=== PATIENT | female | born 1945 | race Caucasian/White ===

== ENCOUNTER 2020-07-11 16:30 | Emergency (ER) | payer MEDICARE, BC ==
[~2020-07-11] VITALS: Ht 167.6 cm; Wt 80.9 kg
[~2020-07-11 16:30] MED LIST: HYDR1TAB PO; NAPR-56 PO; ONDA4TAB6 PO
[2020-07-11 20:04] VITALS: BP 135/64
== END 2020-07-11 20:06 | disposition home or self-care (01) ==
LOC: ER 16:30
DX: S93.402A Sprain of unspecified ligament of left ankle, initial encounter (principal); R60.9 Edema, unspecified; Z79.899 Other long term (current) drug therapy; X50.1XXA Overexertion from prolonged static or awkward postures, initial encounter; Y93.89 Activity, other specified; Y92.89 Other specified places as the place of occurrence of the external cause; Y99.8 Other external cause status
CPT/HCPCS: 93970; 99284

== ENCOUNTER 2024-05-21 12:12 | Outpatient (CLI) | payer MEDICARE, BC ==
[2024-05-21] MEDS ORDERED: barium sulfate 340gm for oral suspension 1 BOTTLE SUSP.RECON PO ONE (15:00)
== END 2024-05-21 23:59 | disposition home or self-care (01) ==
LOC: RAD 12:12
PROVIDERS: ATTEND Surgery
DX: K44.9 Diaphragmatic hernia without obstruction or gangrene (principal); K21.9 Gastro-esophageal reflux disease without esophagitis
CPT/HCPCS: 74220

== ENCOUNTER 2024-08-10 06:01 | Observation (INO) | payer MEDICARE, BC ==
--- NOTE | 2024-08-03 14:11 | ELECTROCARDIOGRAPH REPORT ---
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 LONNIE Salinas Measurements Intervals Victor Rate: 63 P: -4 CT: 160 QRS: -43 QRSD: 97 T: 31 QT: 419 QTc: 429 Interpretive Statements Sinus rhythm Left anterior fascicular block RSR' in V1 or V2, right VCD or RVH Electronically Signed On 08-06-2024 19:12:[address] LONNIE Salinas Please click the below link to view image of tracing.
[2024-08-03 14:15] LABS: BASOPHILS # (AUTO) 0.1 X10'3 (0-0.2); BASOPHILS % (AUTO) 1.3 % (0-1); EOSINOPHILS # (AUTO) 0.2 X10'3 (0-0.9); EOSINOPHILS % (AUTO) 3.2 % (0-6); LYMPHOCYTES # (AUTO) 1.9 X10'3 (1.1-4.8); MEAN CORPUSCULAR HEMOGLOBIN 31.1 PG (27.0-31.0); MEAN CORPUSCULAR HGB CONC 32.9 g/dL (33.0-36.5); MEAN CORPUSCULAR VOLUME 94.7 FL (78-98); MEAN PLATELET VOLUME 7.4 FL (7.4-10.4); MONOCYTES # (AUTO) 0.6 X10'3 (0-0.9); MONOCYTES % (AUTO) 8.8 % (2-12); NEUTROPHILS % (AUTO) 58.7 % (42-75); PRE OP HEMATOCRIT 38.4 % (35.0-45.0); PRE OP HEMOGLOBIN 12.6 g/dL (12.0-16.0); PRE OP PLATELET COUNT 291 X10'3 (140-440); PRE OP WHITE BLOOD COUNT 6.8 10'3 (4.8-10.8); RED BLOOD COUNT 4.06 X10'6 (4.20-5.60); RED CELL DISTRIBUTION WIDTH 13.4 % (11.5-14.5)
[2024-08-03 14:38] LABS: ALBUMIN 3.8 G/DL (3.4-5.0); ALBUMIN/GLOBULIN RATIO 1.2 (1.1-1.5); ALKALINE PHOSPHATASE 46 IU/L (46-116); BLOOD UREA NITROGEN 21 MG/DL (7-18); BUN/CREATININE RATIO 17.9 (10.0-20.0); CALCIUM 9.1 MG/DL (8.5-10.1); CHLORIDE 107 MMOL/L (99-107); CREATININE 1.17 MG/DL (0.40-0.90); PRE OP ALT 27 U/L (30-65); PRE OP ANION GAP 7 (8-16); PRE OP AST 21 U/L (10-37); PRE OP BILIRUB, TOTAL 0.5 MG/DL (0.0-1.0); PRE OP GLUCOSE 85 MG/DL (70-104); PRE OP POTASSIUM 4.3 MMOL/L (3.4-5.1); PRE OP SODIUM 143 MMOL/L (135-145); TOTAL CARBON DIOXIDE 28.7 MMOL/L (24-32); TOTAL PROTEIN 7.1 G/DL (6.4-8.2); eGFR 45 ML/MIN
[2024-08-10] VITALS (40 sets, daily range): BP systolic 107–135; BP diastolic 43–62; PULSE 59–83; RESP 7–19; TEMP 97.3–97.7; O2SAT 93–100
[~2024-08-10] VITALS: Ht 167.6 cm; Wt 68.8 kg
[2024-08-10] MEDS: ceFAZolin 2gm/dext,iso 50mL 50 ML IV ONE (05:30)
[~2024-08-10 06:01] MED LIST changes: +ACET-1025 PO; -HYDR1TAB PO; -NAPR-56 PO; -ONDA4TAB6 PO
[2024-08-10] MEDS: famotidine 20mg tablet PO ONE (06:46)
[2024-08-10] MEDS: ringers solution, lacted 1,000 ML IV SCH ×3 (06:46→16:05)
[2024-08-10] MEDS ORDERED: BUPIVAcaine 2.5mg/ml inj 50ml vial (contains preservative) ONE (06:48)
[2024-08-10] MEDS ORDERED: LIDOcaine 1% 30ml preserv. free vial ONE (06:49)
[2024-08-10] MEDS ORDERED: sevoflurane 250ml liquid IH ONE (08:24)
[2024-08-10] MEDS ORDERED: hydrALAZINE 20mg/ml inj. IV PRN (08:30)
[2024-08-10] MEDS ORDERED: proCHLORperazine 10 MG/2 ml inj IV PRN (08:30)
[2024-08-10] MEDS ORDERED: morphine 4 MG/ML inj SYRINge IV PRN (08:30)
[2024-08-10] MEDS ORDERED: labetalol 20mg/4ml (5mg/ml) syringe IV PRN (08:30)
[2024-08-10] MEDS ORDERED: meperidine/PF 25mg/ml syringe IV PRN (08:30)
[2024-08-10] MEDS ORDERED: midazolam 1 mg/ML 2ml injection ONE (08:31)
[2024-08-10] MEDS: BUPIVAcaine/PF 2.5 mg/ml (0.25%) 30ml vial IJ ONE (08:45)
[2024-08-10] MEDS ORDERED: propofol inj 20 ML IV ONE (08:52)
[2024-08-10] MEDS ORDERED: LIDOcaine 2% (20mg/ml) 5ml vial ONE (08:52)
[2024-08-10] MEDS ORDERED: fentaNYL /PF 50mcg/ml 5ml ampule ONE (08:52)
[2024-08-10] MEDS ORDERED: dexamethasone sod phosphate 4mg/ml inj. ONE (08:53)
[2024-08-10] MEDS ORDERED: rocuronium 10mg/ml inj IV ONE (08:53)
[2024-08-10] MEDS ORDERED: ondansetron/PF 4mg/2ml inj ONE (08:53)
[2024-08-10] MEDS ORDERED: glycopyrrolate 0.2mg/ml inj ONE ×2 (10:15→10:22)
[2024-08-10] MEDS ORDERED: 0.9 % SODIUM CHLORIDE 10 ML VIAL ONE (10:15)
[2024-08-10] MEDS ORDERED: ePHEDrine 50MG/ML INJ. ONE (10:15)
[2024-08-10] MEDS ORDERED: neostigmine methylsulfate 1 MG/ML 10ml vial ONE (10:22)
[2024-08-10] MEDS ORDERED: sugammadex 200mg/2ml injection IV ONE (10:25)
[2024-08-10] MEDS ORDERED: morphine 4 MG/ML inj SYRINge ONE (10:29)
[2024-08-10] MEDS: HYDROmorphone/PF 0.2 MG/ML SYRINGE IV PRN ×2 (10:44→11:13)
[2024-08-10] MEDS: acetaminophen 1,000mg/100ml IV 100 ML IV PRN (10:46)
--- NOTE | 2024-08-10 11:59 | RADIOLOGY REPORT ---
EXAM: DI CHEST,SINGLE VIEW Indication: postop Technique: Single frontal view of the chest was obtained Comparison: None FINDINGS: Lines and Tubes: None Lungs: No focal consolidation. Pleura: No effusion. No pneumothorax. Cardiomediastinal contours: Unremarkable, diffuse subcutaneous emphysema in the neck. Bones: No acute osseous abnormality. IMPRESSION: diffuse subcutaneous emphysema in the neck.No acute cardiopulmonary disease.
[2024-08-10] MEDS: ondansetron/PF 4mg/2ml inj IV PRN (12:47)
[2024-08-10] MEDS: morphine 2 MG/ML inj. syringe IV PRN (12:47)
[2024-08-10] MEDS ORDERED: ondansetron/PF 4mg/2ml inj IV PRN (16:05)
[2024-08-10] MEDS ORDERED: HYDROmorphone inj. 0.5 MG/0.5 ML DISP.SYRIN IV PRN (16:05)
[2024-08-10] MEDS: oxyCODONE/APAP 5-325mg tablet PO PRN (16:22)
--- NOTE | 2024-08-10 19:13 | OPERATIVE REPORT ---
Operative Report Providers to CC CC: JAYDEN DURÁN MD ~ Date of Procedure: Aug 10, 2024 Pre-Operative Diagnosis: paraesophageal hernia Post-Operative Diagnosis Type III paraesophageal hernia Procedure Performed Robotic assisted, laparoscopic paraesophageal hernia repair with mesh Surgeon: Jayden Durán MD FACS Counseling Program Leader None Anesthesiologist: Anthony Marie Type of Anesthesia: General Findings: Type 3 paraesophageal hernia with a proximally 20% of the stomach and GE junction herniated above the hiatus Wound Class I Complications None Prosthetics\Implants used: Phasix mesh Estimated Blood Loss: Minimal Specimen Removed: Hernia sac/GE fat pad excised and discarded Description of Procedure: Patient was brought to the operating room and identified by the nursing staff and the attending physician. Patient was placed supine and general anesthesia was induced. Preoperative antibiotics were given. Plascencia catheter was placed. The abdomen was prepped and draped in the standard sterile fashion. At [place], Veress needle technique was used through a stab incision to access and insufflate the abdomen. This was accomplished without incident. An optical, 12 mm trocar was used to gain access to the abdomen in the left upper quadrant under laparoscopic visualization. Additional 8.5 mm robotic trochars were placed under laparoscopic visualization in the left lateral upper abdomen, left epigastrium and right uppe r quadrant. Patient was placed in steep, reverse Trendelenburg position. The da Krystle robotic arm was docked to the patient and instruments guided into the abdomen under laparoscopic visualization. The left lobe of the liver was lifted and the hiatus inspected. Fairly large hiatal defect was noted. GE junction and a proximally 15-20% of the stomach was above the hiatus. An 18 inch, 0, V-Loc suture was used to sling the left lobe of the liver up to the anterior abdominal wall. With the stomach retracted towards the patient's left upper quadrant, dissection was initiated along the pars flaccida and the lesser sac was entered. The lesser omentum was divided up to the right sammi. There was not a replaced left hepatic artery. Dissection was carried in to the mediastinum. The mediastinal space was entered. Dissection was then carried p osteriorly along the right sammi, taking care to leave peritoneum overlying the muscles. Once the posterior decussation was encountered, attention was then turned to the short gastric vessels. Stomach was retracted toward the patient's right and the short gastric vessels were placed on tension. The short gastric vessels were divided along the upper portion of the greater curvature, up to the phrenoesophageal ligament which was also then divided. The peritoneal reflection of the left sammi was opened and dissection carried up until the apex of the crura was reached. Dissection was carried up into the mediastinum, mobilizing the esophagus from the retrocardiac space and taking care not to injure the bilateral pleura. The entire hernia sac which was moderate in size, was mobilized out of the mediastinum and reduced into the abdomen. Excess sac was dissected at the level of the gastroesophageal fat pad and set aside. The retroesophageal space was developed. The GE junction was retracted anteriorly and the mediastinal dissection was carried out posterior to the esophagus. Dissection continued until at least 3 cm of intra-abdominal esophagus was obtained without any retraction on the stomach. With the stomach retracted anteriorly, adequate space and visualization was obtained to allow for the crural repair. Strips of bioabsorbable, Phasix mesh were used to reinforce the crural repair. A strip of mesh was placed over each crura and used for reapproximation without tension. Attention was then turned to the gastropexy. Fundus was anchored to the upper left portion of the hiatus with full-thickness crural sutures. The suture was then run along the greater curvature creating a gastropexy to the anterior abdominal wall. Care was taken to stay medial to the phrenic nerve and vascular bundle. About a fourth of the gastric fundus was anchored to the anterior abdo olive wall. Attention was then turned to the modified Hill procedure/augmentation stitch. The angle of His was then recreated with a running, 2/0, absorbable, V-Loc suture. This was run between the fundus and the lateral border of the intra-abdominal esophagus. This suture was run up to the level of the left sammi. Gastropexy was then completed by running the midportion of the gastric fundus towards the initial gastropexy suture and anchoring the 2 together. [place] and sutures were retrieved. The da Krystle robotic arm was undocked from the patient. The 12 mm port was removed and the fascial defect closed percutaneously with 0 Vicryl suture. Remaining ports were removed and the abdomen was allowed to deflate. Skin was closed at all sites with 4-0 Monocryl sutures and dressed with Dermabond. Patient was extubated and transferred to the postanesthesia care unit in stable condition. Counts repoted as correct: Yes JAYDEN DURÁN MD Aug 10, 2024 19:13
[2024-08-10] MEDS ORDERED: PER5325T PO (19:16)
[2024-08-10] MEDS: heparin, porcine 5000 units/ml vial SQ SCH (21:08)
[2024-08-11 02:00] VITALS: BP 115/52; PULSE 59; RESP 15; TEMP 97.6; O2SAT 96
[2024-08-11 06:00] VITALS: BP 115/47; PULSE 64; RESP 15; TEMP 97.5; O2SAT 93
[2024-08-11 08:00] VITALS: RESP 18; O2SAT 99
[2024-08-11 10:00] VITALS: BP 124/57; PULSE 54; RESP 17; TEMP 97.2; O2SAT 94
--- NOTE | 2024-08-11 11:33 | DISCHARGE SUMMARY ---
Discharge Summary Providers to CC CC: JAYDEN DURÁN MD ~ Discharge Summary Admission Diagnosis: paraesophageal hernia Hospital Course DATE OF ADMISSION: August 10, 2024 DATE OF DISCHARGE: August 11, 2024 Discharge Diagnosis\Comment: Paraesophageal hernia Operations\Procedures: Robotic assisted, laparoscopic paraesophageal hernia repair with mesh Consultants: Jayden Durán MD FACS Complications: None Condition on DC: Stable New Medications: Oxycodone Hcl/Acetaminophen 5/325 MG* (Percocet 5/325 MG*) 5 Mg/325 Mg Tablet 1 TAB PO Q4H PRN for moderate or severe pain 4-10 for 5 Days, #30 TAB Continued Medications: Acetaminophen (Tylenol Extra Strength) 500 Mg Tablet 2 TAB PO Q6H PRN PRN for pain or fever Discharge Summary: Patient was admitted for postoperative pain management and overnight observation following robotic assisted, laparoscopic mesh repair of a large type 3 parae sophageal hernia. On postoperative day 1., patient was tolerating a full liquid diet without dysphagia, had no dyspnea and pain was adequately controlled with oral pain medications. She was deemed ready for discharge home. *Problems/Diagnosis: (1) Paraesophageal hernia Total Time Spent on D/C: Up to 30 Minutes Counseling Services Smoking & Tobacco Cessation: N/A JAYDEN DURÁN MD Aug 11, 2024 11:33
== END 2024-08-11 12:16 | disposition home or self-care (01) ==
LOC: PAS 06:01 → SUR 3N 16:10
PROVIDERS: ADMIT Surgery; ATTEND Surgery
DX: K44.9 Diaphragmatic hernia without obstruction or gangrene (principal); G89.18 Other acute postprocedural pain; Z79.899 Other long term (current) drug therapy; Z98.890 Other specified postprocedural states
CPT/HCPCS: 43282; 80053; 82948; 93005; 96372; A4615; A4618; C1781; G0378; J1171; J2710; J3490; J7120; 36415; 71045; 85025; 87081; J0131; J1100; J1644; J2003; J2250; J2270; J2405; J2704; J3010